=== PATIENT | female | born 1990 | race Caucasian/White ===

== ENCOUNTER 2023-12-26 15:45 | Outpatient (CLI) | payer OTHER ==
[~2023-12-26] VITALS: Ht 157.5 cm; Wt 94.5 kg
[~2023-12-26 15:45] MED LIST: PRENATAL TABLET PO
[2023-12-26 16:20] VITALS: BP 123/76; PULSE 76; TEMP 97.7
--- NOTE | 2023-12-26 16:38 | NUR ---
Pt and sig other arrive ambulatory to unit at 1550, pt changes into gown, EFM explained and placed. VS done. Pt reports decreased movement today, denies leaking of fluid and contractions, reports some blood tinged mucous yesterday and thinks she lost her mucous plug. Pt states she tried drinking cold drinks and snacks, but movement did not increase. Amnitest done, negative. SVE /-3. FHR minimal variability at 1615, pt given water jug and instructed to drink quickly. At 1625, variability still minimal without accelerations. Dr. Coto notified.
--- NOTE | 2023-12-26 17:40 | NUR ---
1640 - FHR variability improved with accelerations. Discussed starting IV with patient, she wishes to continue drinking water. Pt water refilled and provided juice. Discussed need to continue to monitor FHR for another 20 minutes to show continued improvement. Pt verbalizes understanding and agreement. 1708 - FHR continues Cat 1. Pt naomi every 5-7 mins, reports she feels some but not all of them. Pt also reports feeling increase in baby's movements. Pt taken off monitors at this time. Discharge information provided on early labor, discussed need to return to hospital if leaking fluid, vaginal bleeding, decreased movement, or regular strong contractions every 3-5 minutes. Pt verbalizes understaning.
== END 2023-12-26 17:25 | disposition home or self-care (01) ==
LOC: LDRO 15:45
DX: O36.8130 Decreased fetal movements, third trimester, not applicable or unspecified (principal); Z3A.40 40 weeks gestation of pregnancy

== ENCOUNTER 2023-12-28 04:16 | Outpatient (CLI) | payer OTHER ==
[~2023-12-28] VITALS: Ht 157.5 cm; Wt 94.5 kg
[2023-12-28 05:00] VITALS: BP 127/78; PULSE 73; TEMP 98.2
[2023-12-28] MEDS ORDERED: LR 1,000 ML IV PRN (05:15)
[2023-12-28 05:30] VITALS: BP 116/76; PULSE 75
[2023-12-28 06:00] VITALS: BP 94/62; PULSE 80
== END 2023-12-28 06:00 | disposition home or self-care (01) ==
LOC: LDRO 04:16 → LDR 04:25 → LDRO 06:00
DX: O26.893 Other specified pregnancy related conditions, third trimester (principal); E75.5 Other lipid storage disorders; Z3A.40 40 weeks gestation of pregnancy
CPT/HCPCS: OP